=== PATIENT | female | born 1940 | race Hispanic/Latino ===

== ENCOUNTER 2017-03-29 09:46 | Emergency (ER) | payer MEDICARE ==
[2017-03-29 10:08] VITALS: BMI 38.7
[2017-03-29 10:09] VITALS: RESP 16; TEMP 97.8
--- NOTE | 2017-03-29 10:21 | ED PDOC ---
Arrival/HPI - General Chief Complaint: Trauma Time Seen by Provider: 03/29/17 10:03 Historian: Patient - History of Present Illness Narrative History of Present Illness (Text): 03/29/17 10:15 Sariah Bradford is a 76 year old female, whose past medical history includes diabetes, hypertension, hypercholesterolemia, and GERD, presents to the emergency department accompanied by her daughter with complaints of toe pain on left foot. Patient reports that three days ago she dropped something on her foot and ignored the mild pain, but it has become worse. Patient also reports having left leg swelling compared to baseline since she injured her left rose weeks ago though she says that's getting better. Patient denies any fever, shortness of breath, headache, or other complaints. Her PMD recommended her to come to the emergency department and see a congressional district aide. PMD: Dr. Mary Lou Fischer Time/Duration: < week (3 days) Symptom Onset: Gradual Symptom Course: Worsening Activities at Onset: Light Associated Symptoms (Text): left leg swelling Past Medical History - Provider Review Nursing Documentation Reviewed: Yes - Infectious Disease Hx of Infectious Diseases: None - Reproductive Menopause: Yes - Cardiac Hx Hypertension: Yes - Pulmonary Hx Respiratory Disorders: No - Neurological Hx Neurological Disorder: No - HEENT Other/Comment: L EYE OCCLUSION OF A VESSEL - Renal Hx Renal Disorder: No - Endocrine/Metabolic Hx Diabetes Mellitus Type 2: Yes - Hematological/Oncological Hx Blood Disorders: No - Musculoskeletal/Rheumatological Hx Arthritis: Yes - Gastrointestinal Hx Gastroesophageal Reflux: Yes - Psychiatric Hx Psychophysiologic Disorder: No Hx Substance Use: No - Surgical History Hx Appendectomy: Yes Hx Hysterectomy: Yes Hx Orthopedic Surgery: Yes (L ANKLE) Other/Comment: GASTRIC BAND - Anesthesia Hx Anesthesia: Yes Hx Anesthesia Reactions: No Hx Malignant Hyperthermia: No Family/Social History - Physician Review Nursing Documentation Reviewed: Yes Family/Social History: Unknown Family HX Smoking Status: Former Smoker Hx Alcohol Use: No Hx Substance Use: No Allergies/Home Meds Allergies/Adverse Reactions: Allergies No Known Allergies Allergy (Verified 05/05/16 09:46) Home Medications: Home Meds Medication Instructions Recorded Confirmed Aspirin [Aspirin Chewable] 1 tab PO DAILY 05/05/16 03/29/17 Levothyroxine [Synthroid] 137 mcg PO MWF 05/05/16 03/29/17 Losartan/Hydrochlorothiazide 1 tab PO DAILY 05/05/16 03/29/17 [Hyzaar 100-12.5 Tablet] Rosuvastatin Calcium [Crestor] 5 mg PO DAILY 05/05/16 03/29/17 metFORMIN [glucOPHAGE] 500 mg PO BID 05/05/16 03/29/17 GlipiZIDE [Glucotrol] 10 mg PO DAILY 03/29/17 03/29/17 Levothyroxine [Synthroid] 125 mcg PO TTS 03/29/17 03/29/17 Review of Systems - Review of Systems Constitutional: absent: Fevers Respiratory: absent: SOB Cardiovascular: absent: Chest Pain Gastrointestinal: absent: Abdominal Pain, Vomiting Musculoskeletal: Other (toe pain on left foot after dropping something on it 3 days ago) Neurological: absent: Headache Physical Exam Vital Signs Reviewed: Yes Vital Signs Temp Pulse Resp BP Pulse Ox 03/29/17 12:11 72 16 147/62 98 03/29/17 09:46 97.8 F 64 16 130/58 L 97 Temperature: Afebrile Blood Pressure: Normal Pulse: Regular Respiratory Rate: Normal Appearance: Positive for: Well-Appearing, Non-Toxic, Comfortable Pain Distress: None Mental Status: Positive for: Alert and Oriented X 3 - Systems Exam Head: Present: Atraumatic, Normocephalic Pupils: Present: PERRL Extroacular Muscles: Present: EOMI Conjunctiva: Present: Normal Mouth: Present: Moist Mucous Membranes Respiratory/Chest: Present: Clear to Auscultation, Good Air Exchange. No: Respiratory Distress, Accessory Muscle Use Cardiovascular: Present: Regular Rate and Rhythm, Normal S1, S2. No: Murmurs Abdomen: Present: Normal Bowel Sounds. No: Tenderness, Distention, Peritoneal Signs Upper Extremity: Present: Normal Inspection. No: Cyanosis, Edema Lower Extremity: Present: Tenderness (4th left metatarsal tenderness and swelling), Other (1cm wound on left lower leg, mild warmth and erythema). No: Edema Neurological: Present: GCS=15, CN II-XII Intact, Speech Normal Skin: Present: Warm, Dry, Normal Color. No: Rashes Psychiatric: Present: Alert, Oriented x 3, Normal Insight, Normal Concentration Medical Decision Making ED Course and Treatment: 03/29/17 Impression: 76 year old female with 4th left toe tenderness and 1cm wound on left lower leg with mild warmth and erythema Differential Diagnosis included but are not limited to: fracture vs. cellulitis Plan: -- Labs -- Left foot x-ray -- Left tibia and fibula x-ray -- Reassess and disposition Progress Notes: 03/29/17 11:29 Foot xray shows fx of 4th prox phalanx. Paged podiatry resident working with Dr. Morales. Tib/fib xray negative for acute fx. Will treat with Bactrim for possible early cellulitis. Glucose controlled. 03/29/17 12:58 Safety Lamp Keeper saw patient who recommends salvador tape and provided surgical shoe. Advices patient on no weight bearing on foot and to follow up with congressional district aide in one week. Patient has crutches and knows how to use them. Instructions were given. I advised her to take bactrim for her leg and to make sure to follow up with her doctor and congressional district aide. Daughter will take her home. - Lab Interpretations Lab Results: 03/29/17 10:36 03/29/17 10:36 Lab Results 03/29/17 10:36: Sodium 141, Potassium 4.1, Chloride 105, Carbon Dioxide 24, Anion Gap 16, BUN 36 H, Creatinine 1.2, Est GFR ( Amer) 53, Est GFR (Non- Af Amer) 44, Random Glucose 153 H, Calcium 9.4 03/29/17 10:36: WBC 3.5 L, RBC 3.37 L, Hgb 10.6 L, Hct 31.6 L, MCV 93.8, MCH 31.5, MCHC 33.5, RDW 13.7, Plt Count 176, MPV 9.5, Gran % 43.1 L, Lymph % (Auto ) 44.9 H, [place] % (Auto) 7.1 H, Eos % (Auto) 4.0, Baso % (Auto) 0.9, Gran # 1.52 , Lymph # 1.6, [place] # 0.3, Eos # 0.1, Baso # 0.03 I have reviewed the lab results: Yes - RAD Interpretation Radiology Orders: 03/29/17 10:15 FOOT LEFT 3 VIEWS ROUTINE [RAD] Stat TIBIA FIBULA LEFT [RAD] Stat Freight Unloader: Radiologist - Medication Orders Current Medication Orders: Discontinued Medications Sodium Chloride (Sodium Chloride 0.9%) 1,000 mls @ 999 mls/hr IV .Q1H1M STA Stop: 03/29/17 11:58 Last Admin: 03/29/17 11:53 Dose: 999 mls/hr eMAR Start Stop Document 03/29/17 11:53 AD (Rec: 03/29/17 11:53 AD [id number]) Intravenous Solution Start Date 03/29/17 Start Time 11:53 Trimethoprim/Sulfamethoxazole (Bactrim Ds Tab) 1 tab PO STAT STA PRN Reason: Protocol Stop: 03/29/17 11:31 Last Admin: 03/29/17 12:51 Dose: 1 tab - Scribe Statement The provider has reviewed the documentation as recorded by the Scribe Gudelia Holman Provider Scribe Attestation: All medical record entries made by the Scribe were at my direction and personally dictated by me. I have reviewed the chart and agree that the record accurately reflects my personal performance of the history, physical exam, medical decision making, and the department course for this patient. I have also personally directed, reviewed, and agree with the discharge instructions and disposition. Disposition/Present on Arrival - Present on Arrival Any Indicators Present on Arrival: Yes History of DVT/PE: No History of Uncontrolled Diabetes: Yes Urinary Catheter: No History of Decub. Ulcer: No History Surgical Site Infection Following: Bariatric Surgery, None - Disposition Have Diagnosis and Disposition been Completed?: Yes Diagnosis: Fracture of fourth toe, left, closed, Cellulitis Disposition: HOME/ ROUTINE Disposition Time: 11:31 Patient Plan: Discharge Condition: IMPROVED Discharge Instructions (ExitCare): Cellulitis (ED) Additional Instructions: Ms Bradford, thank you for letting us take care of you today. Your provider was Dr. Rios. You were treated for Foot Fracture, Early Cellulitis. The emergency medical care you received today was directed at your acute symptoms. If you were prescribed any medication, please fill it and take as directed. It may take several days for your symptoms to resolve. Return to the Emergency Department if your symptoms worsen, do not improve, or if you have any other problems. Please contact your doctor or call one of the physicians/clinics you have been referred to that are listed on the Patient Visit Information form that is included in your discharge packet. Bring any paperwork you were given at discharge with you along with any medications you are taking to your follow up visit. Our treatment cannot replace ongoing medical care by a primary care provider (PCP) outside of the emergency department. Thank you for allowing the [facility] team to be part of your care today. If you had an X-Ray or CT scan: A Radiologist will review the ED reading if any change in treatment is needed we will contact you. If you had a blood, urine, or wound culture: It will take several days for the results, if any change in treatment is needed we will contact you. If you had an STI test: It will take 48 hours for the results. Please call after 1 week if you have not heard back. Prescriptions: Naproxen 500 mg PO BID PRN #30 tab PRN Reason: Pain, Moderate (4-7) oxyCODONE/Acetaminophen [Percocet 5/325 mg Tab] 1 ea PO Q6 PRN #20 tab PRN Reason: Pain, Moderate (4-7) Sulfamethoxazole/Trimethoprim [Bactrim DS 800 mg-160 mg] 1 tab PO DAILY #14 tab Referrals: Mary Lou Fischer MD [Primary Care Provider] - Follow up with primary Britni Morales DPM [Staff Provider] - Follow up with primary (1 week follow up.) Forms: [employer] (Hungarian)
[2017-03-29 10:42] LABS: BASO # 0.03 K/mm3 (0.0-2.0); BASO % 0.9 % (0.0-3.0); EOS # 0.1 (0.0-0.7); GRAN # 1.52 (1.4-6.5); GRAN % 43.1 % (50.0-68.0); HEMATOCRIT 31.6 % (36.0-48.0); LYMPH # 1.6 (1.2-3.4); LYMPH % 44.9 % (22.0-35.0); MEAN CELL VOLUME 93.8 fl (80.0-105.0); MEAN CORPUSCULAR HEMOGLOBIN 31.5 pg (25.0-35.0); MEAN CORPUSCULAR HGB CONC 33.5 g/dl (31.0-37.0); MEAN PLATELET VOLUME 9.5 fl (7.0-11.0); MONO # 0.3 (0.1-0.6); MONO % 7.1 % (1.0-6.0); RED CELL DISTRIBUTION WIDTH 13.7 % (11.5-14.5); WHITE BLOOD COUNT 3.5 10^3/ul (4.5-11.0)
[2017-03-29 10:52] LABS: CALCIUM 9.4 mg/dL (8.4-10.5); POTASSIUM 4.1 mmol/L (3.6-5.0)
[2017-03-29] MEDS ORDERED: Sodium Chloride 0.9% 1,000 ML IV STA (10:58)
--- NOTE | 2017-03-29 11:28 | RAD ---
PROCEDURE: Left Foot Radiographs. HISTORY: injury r/o fx COMPARISON: None. FINDINGS: BONES: There is a cortical step-off in the distal aspect of the proximal phalanx of the 4th toe. There is diffuse bone demineralization. Bone alignment is normal. 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 SOFT TISSUES: There is soft tissue swelling in the 4th toe. OTHER FINDINGS: None. IMPRESSION: Suspect acute nondisplaced fracture in the distal aspect of the proximal phalanx of the 4th toe. Moderate soft tissue swelling in the 4th toe.
[2017-03-29] MEDS ORDERED: Tmp-Smz 800 mg-160 mg DS Tab PO STA (11:30)
[2017-03-29 12:12] VITALS: BP 147/62; PULSE 72; O2SAT 98
--- NOTE | 2017-03-29 12:50 | RAD ---
PROCEDURE: Radiographs of the left tibia and fibula. HISTORY: pain r/o fx COMPARISON: None available. TECHNIQUE: Frontal and lateral views obtained. FINDINGS: BONES: There is no acute displaced fracture or bone destruction. There is an old healed fracture in the distal fibula. JOINT SPACES: Unremarkable. OTHER FINDINGS: None. IMPRESSION: No acute fracture. Old healed fracture in the distal fibula.
--- NOTE | 2017-03-29 15:20 | CP.PCM.CON ---
History of Present Illness - History of Present Illness History of Present Illness: Podiatry Consult Note - Dr. Morales 76 year old female patient PMHx DM, HTN, hypercholesterolemia, GERD seen in ED for left foot pain. Patient seen resting comfortably, AAOx3 and NAD. Patient's daughter is accompanied at bedside. Patient states on Saturday night, she dropped something and it fell on the top of her left foot 4th digit. Since then , patient admits to walking on her left foot full weightbearing, however with difficulty. Patient reports 10/10 pain to her left 4th digit and describes the pain as a burning/tingling sensation, with pain increasing with ambulation. Patient was told by Dr. Morales come to ED to receive treatment. Patient admits that she has taken Ibuprofen and Tylenol for alleviation of symptoms but neither have worked. Patient admits to icing the top of her right foot. Patient also complains of a superficial wound on her left rose that has been present for 2.5 weeks. Patient denies any pain to her left rose. Patient denies N/V/F/D/ C/SOB. No other pedal complaints at this time. Review of Systems - Review of Systems All systems: reviewed and no additional remarkable complaints except (as per HPI ) Past Patient History - Infectious Disease Hx of Infectious Diseases: None - Past Social History Smoking Status: Former Smoker - CARDIAC Hx Hypertension: Yes - PULMONARY Hx Respiratory Disorders: No - NEUROLOGICAL Hx Neurological Disorder: No - HEENT Other/Comment: L EYE OCCLUSION OF A VESSEL - RENAL Hx Chronic Kidney Disease: No - ENDOCRINE/METABOLIC Hx Diabetes Mellitus Type 2: Yes - HEMATOLOGICAL/ONCOLOGICAL Hx Blood Disorders: No - MUSCULOSKELETAL/RHEUMATOLOGICAL Hx Arthritis: Yes - GASTROINTESTINAL Hx Gastroesophageal Reflux: Yes - PSYCHIATRIC Hx Psychophysiologic Disorder: No Hx Substance Use: No - SURGICAL HISTORY Hx Appendectomy: Yes Hx Hysterectomy: Yes Hx Orthopedic Surgery: Yes (L ANKLE) Other/Comment: GASTRIC BAND - ANESTHESIA Hx Anesthesia: Yes Hx Anesthesia Reactions: No Hx Malignant Hyperthermia: No Meds Home Medications: Home Medication List Medication Instructions Recorded Confirmed Type Naproxen 500 mg PO BID PRN #30 tab 03/29/17 Rx Sulfamethoxazole/Trimethoprim 1 tab PO DAILY #14 tab 03/29/17 Rx [Bactrim DS 800 mg-160 mg] oxyCODONE/Acetaminophen [Percocet 1 ea PO Q6 PRN #20 tab 03/29/17 Rx 5/325 mg Tab] Allergies/Adverse Reactions: Allergies Allergy/AdvReac Type Severity Reaction Status Date / Time No Known Allergies Allergy Verified 05/05/16 09:46 Physical Exam - Constitutional Appears: Well, Non-toxic, No Acute Distress - Extremities Exam Additional comments: VASC: DP and PT pulses palpable 2/4 b/l. CFT <3 seconds to digits x10. TG warm to warm. No increase in warmth to left leg. Edema noted to left 4th digit. NEURO: Gross sensation absent Derm: Left 4th digit appears edematous + erythematous. No open lesions noted. 0.2 x 0.2 hyperkeratotic lesion noted to left anterior tibia with scaling rim and periwound erythema - no fluctuance, drainage, purulence, malodor; no clincal signs of infection noted ORTHO: Pain on palpation left 4th digit. Pain upon active and passive ROM left 4th digit. - Neurological Exam Neurological exam: Alert, Oriented x3 - Psychiatric Exam Psychiatric exam: Normal Affect, Normal Mood Results - Vital Signs Recent Vital Signs: Last Vital Signs Temp 97.8 F 03/29/17 09:46 Pulse 72 03/29/17 12:11 Resp 16 03/29/17 12:11 BP 147/62 03/29/17 12:11 Pulse Ox 98 03/29/17 12:11 - Labs Result Diagrams: 03/29/17 10:36 03/29/17 10:36 Labs: Laboratory Results - last 24 hr 03/29/17 03/29/17 10:36 10:36 WBC 3.5 L RBC 3.37 L Hgb 10.6 L Hct 31.6 L MCV 93.8 MCH 31.5 MCHC 33.5 RDW 13.7 Plt Count 176 MPV 9.5 Gran % 43.1 L Lymph % (Auto) 44.9 H [place] % (Auto) 7.1 H Eos % (Auto) 4.0 Baso % (Auto) 0.9 Gran # 1.52 Lymph # 1.6 [place] # 0.3 Eos # 0.1 Baso # 0.03 Sodium 141 Potassium 4.1 Chloride 105 Carbon Dioxide 24 Anion Gap 16 BUN 36 H Creatinine 1.2 Est GFR ( Amer) 53 Est GFR (Non-Af Amer) 44 Random Glucose 153 H Calcium 9.4 Assessment & Plan - Assessment and Plan (Free Text) Assessment: 76 year old female PMHx DM, HTN, hypercholesterolemia with left 4th proximal phalanx fracture, nondisplaced Plan: Patient seen and evaluated at bedside Discussed with attending, Dr. Morales Charts, vitals, lab reviewed: afebrile, WBC 3.5 Left foot XR reviewed: acute nondisplaced fracture distal aspect of 4th proximal phalanx Left 4th digit salvador splinted to 3rd digit using 1" coban Dispense surgical shoe. Patient to WBAT left foot with the assistance of crutches Recommend pain mgmt per medicine Patient to follow up in Dr. Morales's office next week Stable from podiatry standpoint Thank you for this consult, please reconsult again as needed
== END 2017-03-29 13:07 | disposition home or self-care (01) ==
LOC: ED 09:46
DX: S92.512A Displaced fracture of proximal phalanx of left lesser toe(s), initial encounter for closed fracture (principal); W22.8XXA Striking against or struck by other objects, initial encounter; Y93.89 Activity, other specified; Y92.89 Other specified places as the place of occurrence of the external cause; L03.116 Cellulitis of left lower limb
CPT/HCPCS: 73590; 73630; 80048; 85025; 99285; J7040